=== PATIENT | female | born 1985 | race Hispanic/Latino ===

== ENCOUNTER 2018-02-01 07:35 | Emergency (ER) | payer MEDICARE, OTHER ==
[~2018-02-01] VITALS: Ht 157.5 cm; Wt 81.6 kg
--- OUTSIDE RECORDS SUMMARY | 2018-02-01 07:37 | XMS REPORT | Summary of Care ---
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 Name Role Phone EDWARD P.Nette., FREDO Unavailable Unavailable OCTAVIO Hopkins, EDYTA Unavailable Unavailable ATA Monaco, MICHAEL Unavailable Unavailable JERE STOCK NH, ELYSIA S Unavailable Unavailable JERE Monaco, ELYSIA Unavailable Unavailable EDWARD WONG NH, FREDO Unavailable Unavailable Unavailable Unavailable Functional Status Name Dates Details Functional status health issues are not documented Status: Name Dates Details Cognitive status health issues are not documented Status: Problems Name Dates Details Excessive sweating (780.8, R61) Status: Active Hemorrhoids (455.6, K64.9) Status: Active BMI 30.0-30.9,adult (V85.30, Z68.30) Status: Active TMJ (temporomandibular joint disorder) (524.60, M26.609) Status: Active Encounter for cervical Pap smear with pelvic exam (V76.2, Z01.419) Status: Active Right wrist pain (719.43, M25.531) Status: Active De Quervain's tenosynovitis (727.04, M65.4) Status: Active Allergic rhinitis (477.9, J30.9) Status: Active Irregular Length Of Menstrual Periods Status: Active Pap smear abnormality of cervix with HGSIL (795.04, R87.613) Status: Active Acute maxillary sinusitis, recurrence not specified (461.0, J01.00) Status: Active Screening examination for STD (sexually transmitted disease) (V74.5, Z11.3) Status: Active Encounter for PPD test (V74.1, Z11.1) Status: Active Dysuria (788.1, R30.0) Status: Active Vaginal discharge (623.5, N89.8) Status: Active Contraception (V25.9, Z30.9) Status: Active Subacute and chronic vaginitis (616.10, N76.1) Status: Active Esophageal spasm (530.5, K22.4) Status: Active Painful urination (788.1, R30.9) Status: Active Need for Menactra vaccination (V03.89, Z23) Status: Active Oligomenorrhea (626.1, N91.5) Status: Active Need for influenza vaccination (V04.81, Z23) Status: Active Persistent headaches (784.0, R51) Status: Active Anxiety (300.00, F41.9) Status: Active Generalized anxiety disorder (300.02, F41.1) Status: Active Panic attacks (300.01, F41.0) Status: Active Medications Name Dates Details Fluticasone Propionate 50 MCG/ACT Nasal Suspension USE 2 SPRAYS IN EACH NOSTRIL TWICE DAILY FOR SINUS INFLAMMATION Quantity: 16 EDWARD P.A., FREDO * Start : 30-May-2017 Active Sertraline HCl - 100 MG Oral Tablet TAKE 1 TABLET BY MOUTH EVERY DAY * Quantity: 90 Refills: 0 MICHAEL BERUMEN M.D. * Start : 04-Apr-2016 Active ALPRAZolam 1 MG Oral Tablet TAKE 1 TABLET AT BEDTIME NEEDED. * Quantity: 30 Refills: 5 EDWARD P.A., FREDO * Start : 04-Apr-2016 Active SUMAtriptan Succinate 25 MG Oral Tablet TAKE 1 TABLET EVERY 2 HOURS NEEDED FOR MIGRAINE. MAXIMUM 8 TABLETS DAILY. * Quantity: 9 Refills: 3 OCTAVIO N.P., EDYTA * Start : 24-Mar-2017 Active Allergies and Adverse Reactions Name Dates Details No Known Allergies (Allergy) Status: Active Past Medical History Name Dates Details History of acute bronchitis (V12.69, Z87.09) Status: Resolved History of Hearing impaired (389.9, H91.90) Status: Resolved History of High cholesterol (272.0, E78.00) Status: Resolved History of human papillomavirus infection (V12.09, Z86.19) Status: Resolved Procedures Procedure Dates Details History of Cervical Loop Electrosurgical Excision (LEEP) Completed History of Surgically Induced - By Dilation And Curettage Completed Immunization Name Dates Details Influenza Comments: Approx [id number] Fluzone Quadrivalent 0.5 ML Intramuscular Suspension Lot #: [id number] on: 17-Mar-2015 Fluzone Quadrivalent 0.5 ML Intramuscular Suspension Lot #: [id number] on: 04-Apr-2016 PPD Lot #: [id number] on: 31-May-2016 Fluzone Quadrivalent 0.5 ML Intramuscular Suspension Prefilled Syringe Lot #: [id number] on: 13-Mar-2017 Meningo (Menactra) Lot #: [id number] on: 13-Mar-2017 Family History Name Dates Details Family history of Hypertension (401.9, I10) Status: Active Family history of Diabetes (250.00, E11.9) Status: Active Family history of Breast cancer (174.9, C50.919) Status: Active Family history of High cholesterol (272.0, E78.00) Status: Active Social History Name Dates Details - Status: Name Dates Details Never smoker Never smoker Never smoker Vital Signs Date Test Result Details No Known Vitals to report Results Date Description Value Details Results not documented Plan of Care Name Dates Details Planned Observations Planned Goals not documented Planned Encounters Appointment; OUMOU VALDOVINOS LCSW On: 29-Jun-2017 10:00 Appointment; MICHAEL BERUMEN M.D. On: 14-Aug-2017 10:00 Instructions Name Dates Details Instructions not documented Encounters Appointment; ALEXYS RÍOS M.D. Encounter Diagnosis: Problem not documented On: 01-Sep-2015 8:30 Appointment; ELYSIA OQUENDO M.D. Encounter Diagnosis: Problem not documented On: 06-Oct-2015 15:30 Appointment; NICHOLAS FOWLER M.D. Encounter Diagnosis: Problem not documented On: 28-Oct-2015 9:30 Appointment; ALEXYS RÍOS M.D. Encounter Diagnosis: Problem not documented On: 03-Feb-2016 9:00 Appointment; POLA YEE M.D. Encounter Diagnosis: Problem not documented On: 10-Feb-2016 8:30 Appointment; FREDO LEON P.A. Encounter Diagnosis: Problem not documented On: 04-Apr-2016 8:30 Appointment; JOHANN GARCIA M.D. Encounter Diagnosis: Problem not documented On: 06-Apr-2016 8:30 Appointment; FREDO LEON P.A. Encounter Diagnosis: Problem not documented On: 31-May-2016 8:00 Appointment; MATTHIAS GOVEA M.D. Encounter Diagnosis: Problem not documented On: 27-Jun-2016 13:00 Appointment; MATTHIAS GOVEA M.D. Encounter Diagnosis: Problem not documented On: 11-Jul-2016 9:20 Appointment; FREDO LEON P.A. Encounter Diagnosis: Problem not documented On: 13-Sep-2016 15:45 Appointment; FREDO LEON P.A. Encounter Diagnosis: Problem not documented On: 13-Mar-2017 8:00 Appointment; EDYTA CUNNINGHAM NP Encounter Diagnosis: Problem not documented On: 24-Mar-2017 9:30 Appointment; OUMOU VALDOVINOS LCSW Encounter Diagnosis: Problem not documented On: 26-Apr-2017 10:00 Appointment; MICHAEL BERUMEN M.D. Encounter Diagnosis: Problem not documented On: 22-May-2017 10:00
--- NOTE | 2018-02-01 13:35 | Diagnostic Imaging Report ---
LEFT ANKLE - 3 VIEWS LEFT FOOT - 3 VIEWS HISTORY: Pain, plantar surface COMPARISON: None available. FINDINGS: Bones: No acute displaced fracture. Small plantar calcaneal spur. Joints: Mild hallux valgus deformity and minimal associated degenerative changes of the first metatarsophalangeal joint. Soft tissues: The soft tissues appear unremarkable. IMPRESSION: 1. No acute radiographic abnormality. 2. Mild chronic plantar calcaneal enthesopathy. Signed by: Dr. Sreekanth Trevino D.O., M.M.M. on 02/01/2018 1:32 PM
--- NOTE | 2018-02-01 13:37 | Diagnostic Imaging Report ---
RIGHT HIP - 3 VIEWS HISTORY: Pain COMPARISON: None available. FINDINGS: Bones: Some of the osseous structures are partially obscured by stool and overlying bowel gas. No acute displaced fracture. Osseous alignment is within normal limits. Joints: Minimal degenerative changes of both hips. Mild degenerative changes of the pubic symphysis with a 0.8 cm ossific fragment projecting at the inferior aspect of the joint. Soft tissues: The soft tissues appear unremarkable. IMPRESSION: 1. No acute radiographic abnormality. 2. 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 Signed by: Dr. Sreekanth Trevino D.O., M.M.M. on 02/01/2018 1:34 PM
[2018-02-01 14:47] VITALS: BP 139/97
== END 2018-02-01 15:40 | disposition home or self-care (01) ==
LOC: ER 07:35
DX: M25.551 Pain in right hip (principal); M16.11 Unilateral primary osteoarthritis, right hip; M72.2 Plantar fascial fibromatosis
CPT/HCPCS: 81025; 99283